=== PATIENT | female | born 1980 | race Caucasian/White ===

== ENCOUNTER 2017-09-21 22:43 | Emergency (ER) | payer SELFPAY ==
[2017-09-21 23:05] VITALS: TEMP 98.7; O2SAT 100
[2017-09-21] MEDS ORDERED: Amoxicillin-Clav 875-125 mg Tab PO STA (23:34)
--- NOTE | 2017-09-21 23:41 | ED PDOC ---
Arrival/HPI - General Chief Complaint: ENT Problem Time Seen by Provider: 09/21/17 23:34 Historian: Patient - History of Present Illness Narrative History of Present Illness (Text): 09/21/17 23:38 37yo female with no pmhx who present with worsening right ear pain and sore throat x 7days. +Odynophagia. She denies dysphagia, hoarseness, drooling, stridor, , fever, chills, neck pain, nausea, vomiting, abdominal pain, any other complaint. Past Medical History - Provider Review Nursing Documentation Reviewed: Yes - Infectious Disease Hx of Infectious Diseases: None - Psychiatric Hx Substance Use: No - Surgical History Hx Section: Yes (x2) - Anesthesia Hx Anesthesia: No Family/Social History - Physician Review Nursing Documentation Reviewed: Yes Family/Social History: Unknown Family HX Smoking Status: Never Smoked Hx Alcohol Use: No Frequency of alcohol use: Socially Hx Substance Use: No Allergies/Home Meds Allergies/Adverse Reactions: Allergies No Known Allergies Allergy (Verified 09/21/17 23:08) Home Medications: Home Meds Medication Instructions Recorded Confirmed D-Methorphan/PE/Acetaminophen 2 tab PO PRN PRN 09/21/17 09/21/17 [Vicks Dayquil Liquicaps] Ibuprofen [Advil] 2 tab PO PRN PRN 09/21/17 09/21/17 Review of Systems - Physician Review All systems were reviewed & negative as marked: Yes - Review of Systems Constitutional: Normal Eyes: Normal ENT: Sore Throat, Other (right ear pain) Respiratory: Normal Cardiovascular: Normal Gastrointestinal: Normal Genitourinary Female: Normal Musculoskeletal: Normal Skin: Normal Neurological: Normal Endocrine: Normal Hemo/Lymphatic: Normal Psychiatric: Normal Physical Exam Vital Signs Reviewed: Yes Vital Signs Temp Pulse Resp BP Pulse Ox 09/21/17 23:01 98.7 F 104 H 18 156/97 H 100 Temperature: Afebrile Blood Pressure: Normal Pulse: Regular Respiratory Rate: Normal Appearance: Positive for: Well-Appearing, Non-Toxic, Comfortable Pain Distress: None Mental Status: Positive for: Alert and Oriented X 3 - Systems Exam Head: Present: Atraumatic, Normocephalic Pupils: Present: PERRL Extroacular Muscles: Present: EOMI Conjunctiva: Present: Normal Ears: Present: Erythema (right TM), TM Bulging (Right TM). No: NORMAL TM Mouth: Present: Moist Mucous Membranes Pharnyx: Present: ERYTHEMA. No: EXUDATE, TONSILS ENLARGED, Peritonsilar Swelling, Uvular Deviation, Muffled/Hoarse Voice, Strider Neck: Present: Normal Range of Motion Respiratory/Chest: Present: Clear to Auscultation, Good Air Exchange. No: Respiratory Distress, Accessory Muscle Use Cardiovascular: Present: Regular Rate and Rhythm, Normal S1, S2. No: Murmurs Abdomen: No: Tenderness, Distention, Peritoneal Signs Back: Present: Normal Inspection Upper Extremity: Present: Normal Inspection. No: Cyanosis, Edema Lower Extremity: Present: Normal Inspection. No: Edema Neurological: Present: GCS=15, CN II-XII Intact, Speech Normal Skin: Present: Warm, Dry, Normal Color. No: Rashes Lymphatic: Present: Other (Right submandibular node tender and palpable) Psychiatric: Present: Alert, Oriented x 3, Normal Insight, Normal Concentration Medical Decision Making - Medication Orders Current Medication Orders: Discontinued Medications Amoxicillin/Clavulanate Potassium (Augmentin 875 Mg-125 Mg Tab) 1 tab PO STAT STA PRN Reason: Protocol Stop: 09/21/17 23:35 Dexamethasone (Decadron Inj) 10 mg IM STAT STA Stop: 09/21/17 23:37 Disposition/Present on Arrival - Present on Arrival Any Indicators Present on Arrival: No History of DVT/PE: No History of Uncontrolled Diabetes: No Urinary Catheter: No History of Decub. Ulcer: No History Surgical Site Infection Following: None - Disposition Have Diagnosis and Disposition been Completed?: Yes Diagnosis: Acute otitis media, Pharyngitis, Lymphadenopathy Disposition: HOME/ ROUTINE Disposition Time: 23:45 Patient Plan: Discharge Condition: STABLE Discharge Instructions (ExitCare): Ear Infections (Otitis Media) (DC), Sore Throat, Adult (DC) Additional Instructions: Follow up with your Doctor/Clinic Return to ED for any new or worsening symptoms Prescriptions: Amoxicillin/Clavulanate [Augmentin 875 MG-125 MG] 1 tab PO BID #[id number] tab Referrals: [facility] [place] [facility] [place] - Follow up with primary
[2017-09-22 00:04] VITALS: BP 142/76; PULSE 98; RESP 20
== END 2017-09-22 | disposition home or self-care (01) ==
LOC: ED 22:43
DX: H66.90 Otitis media, unspecified, unspecified ear (principal); J02.9 Acute pharyngitis, unspecified; R59.1 Generalized enlarged lymph nodes
CPT/HCPCS: 96372; 99283; J1100